=== PATIENT | male | born 1965 | race Caucasian/White ===

== ENCOUNTER 2017-08-29 10:25 | Day surgery (SDC) | payer OTHER ==
[2017-08-29] MEDS ORDERED: LR 1,000 ML IV ONE (10:44)
[2017-08-29] MEDS ORDERED: LIDOCAINE 1% 2 ML INJ ID PRN (10:44)
[2017-08-29 11:02] VITALS: PULSE 78
--- NOTE | 2017-08-29 11:46 | PDANEPAE ---
ANE History of Present Illness 52 yo male with GERD for screening EGD and colonoscopy. ANE Past Medical History - Cardiovascular History Hx Hypertension: Yes Hx Arrhythmias: No Hx Chest Pain: No Hx Coronary Artery / Peripheral Vascular Disease: No Hx CHF / Valvular Disease: No Hx Palpitations: No Cardiovascular History Comment: ATRIAL FIB ABLATION DONE IN 2013 - Pulmonary History Hx COPD: No Hx Asthma/Reactive Airway Disease: Yes Hx Recent Upper Respiratory Infection: No Hx Oxygen in Use at Home: No Hx Sleep Apnea: No Sleep Apnea Screening Result - Last Documented: Positive Pulmonary History Comment: ASTHMA REFLUX IS THE TRIGGER AND OUT IN COLD WEATHER , last ER visit about 10 years ago when pt did not have his rescue inhaler. - Neurologic History Hx Cerebrovascular Accident: No Hx Seizures: No Hx Dementia: No - Endocrine History Hx Diabetes: No Hypothyroid: No - Renal History Hx Renal Disorders: Yes Renal History Comment: BPH - Liver History Hx Hepatic Disorders: No - Neurological & Psychiatric Hx Hx Neurological and Psychiatric Disorders: Yes Neurological / Psychiatric History Comment: ANXIETY - Cancer History Hx Cancer: No - Congenital Disorder History Hx Congenital Disorders: No - GI History GERD: moderate Hx Gastrointestinal Disorders: Yes Gastrointestinal History Comment: REFLUX. DYSPHASIA - Other Health History Other Health History: FLU -01-15. SMALL SKIN TAG ON PENIS - Chronic Pain History Chronic Pain: No - Surgical History Prior Surgeries: ATRIAL ABLATION 2015 SULEMA. ORAL SURGERY. EGD ANE Review of Systems Review of Systems: - Exercise capacity METS (RN): 6 METS - Systems Constitutional: Reports: no symptoms Cardiac: Reports: no symptoms Respiratory: Reports: no symptoms ANE Patient History - Allergies Allergies/Adverse Reactions: hydrocodone bitartrate [From Vicodin] Allergy (Unknown, Verified 04/12/11 19:08) fentanyl Allergy (Verified 08/08/17 12:16) SEVERE GI ISSUES midazolam [From Versed] Allergy (Verified 08/08/17 12:17) SEVERE GI ISSUES - Home Medications Home Medications: Amitriptyline HCl [Elavil 10 mg (*)] 10 mg PO HS 03/17/14 [Last Taken 08/28/17 20:00] Aspirin [Aspirin 325 mg (*)] 325 mg PO HS 03/17/14 [Last Taken 08/23/17] Atorvastatin Calcium [Lipitor 20 mg (RX)] 20 mg PO HS 03/17/14 [Last Taken 08/28 20:00] Montelukast Sodium [Singulair 10 mg (*)] 10 mg PO HS 03/17/14 [Last Taken 20:00] Ranitidine HCl [Zantac] 150 mg PO HS 03/17/14 [Last Taken 08/28/17 20:00] Valsartan [Diovan (*)] 80 mg PO HS 03/17/14 [Last Taken 08/28/17 20:00] Pantoprazole Sodium BID 08/08/17 [Last Taken 08/28/17 20:00] Tamsulosin HCl HS 08/08/17 [Last Taken 08/28/17 20:00] Xopenex Hfa PRN 08/08/17 [Last Taken Unknown] Zetonna HS 08/08/17 [Last Taken 08/28/17 20:00] - NPO status NPO Since - Liquids (Date): 08/29/17 NPO Since - Liquids (Time): 02:45 NPO Since - Solids (Date): 08/28/17 NPO Since - Solids (Time): 09:00 - Anes Hx Anes Hx: post operative nausea and vomiting - Smoking Hx Smoking Status: Never smoked - Family Anes Hx Family Anes Hx: neg - N/A ANE Labs/Vital Signs - Vital Signs Blood Pressure: 134/83 Heart Rate: 78 Respiratory Rate: 16 O2 Sat (%): 100 Height: 182.88 cm Weight: 86.183 kg ANE Physical Exam - Airway Neck exam: FROM Mallampati Score: Class 3 Mouth exam: normal dental/mouth exam - Pulmonary Pulmonary: clear to auscultation - Cardiovascular Cardiovascular: regular rate and rhythym - ASA Status ASA Status: II ANE Anesthesia Plan Anesthesia Plan: GA with mask Total IV Anesthesia: Yes
[2017-08-29] MEDS ORDERED: PROPOFOL/EMULSION 500 MG/50 ML BOTTLE IV ONE (11:55)
[2017-08-29] MEDS ORDERED: LIDOCAINE 2% 5 ML SDV ONE (11:55)
--- NOTE | 2017-08-29 12:02 | PDGENHP ---
History & Physical Chief Complaint: Heartburn, Screening colonoscopy History of Present Illness: Heartburn. Screening colonoscopy Pertinent Past, Social, Family History: No family history of colon cancer. No ETOH No tobacco. RAD. GERD. History of Atrial fibrillation s/p ablation Relevant Physical Exam: NAD. NC/AT. OP clear. CTA B/L. RRR without m/r/g. ABD soft. NABS. NTND. No edema Cardiorespiratory Assessment: ASA II. EGD. Colonoscopy with MAC (history of intolerance to versed and fentanyl)
[2017-08-29] MEDS ORDERED: PROPOFOL 200 MG/20 ML VIAL ONE (12:03)
--- NOTE | 2017-08-29 12:12 | GIREPORT ---
[facility] - Endoscopy Department Patient Name: Mikael Kim Procedure Date: 08/29/2017 11:14 AM Patient Type: Outpatient Attending MD/ ER Physician: Lambert Dao MD Procedure: Upper GI endoscopy Indications: Heartburn Providers: Lambert Dao MD Medicines: Propofol per Anesthesia Complications: No immediate complications. Description of Procedure: After obtaining informed consent, the endoscope was passed under direct vision. Throughout the procedure, the patient's blood pressure, pulse, and oxygen saturations were monitored continuously. The Endoscope was intro duced through the mouth, and advanced to the second part of duodenum. The [facility] er GI endoscopy was accomplished without difficulty. The patient tolerated th e procedure well. Findings: Mucosal changes including ringed esophagus, longitudinal furrows and wh ite plaques were found in the middle third of the esophagus and in the lowe r third of the esophagus. Biopsies were obtained from the proximal and di stal esophagus with cold forceps for histology of suspected eosinophilic esophagitis. The stomach was normal. The examined duodenum was normal. Estimated Blood Loss: Estimated blood loss: none. Post Op Diagnosis: - Esophageal mucosal changes suggestive of eosinophilic esophagitis. Biopsied. - Normal stomach. - Normal examined duodenum. Recommendation: - Await pathology results. - Resume previous diet. - Continue present medications. - Patient has a contact number available for emergencies. The signs and symptoms of potential delayed complications were discussed with the pat ient. Return to normal activities tomorrow. Written discharge instructions we re provided to the patient. - Return to GI office as previously scheduled. Attending Participation: I personally performed the entire procedure without the assistance of a fellow, resident or surg ical podiatry assistant. Lambert Dao MD Lambert Dao MD 08/29/2017 12:11:51 PM This report has been signed electronicallyDavid MD Feliberto Number of Addenda: 0 Note Initiated On: 08/29/2017 11:14 AM [email or web address]
--- NOTE | 2017-08-29 12:32 | GIREPORT ---
[facility] - Endoscopy Department Patient Name: Mikael Kim Procedure Date: 08/29/2017 11:17 AM Patient Type: Outpatient Attending / ER Physician: Lambert Dao MD Procedure: Colonoscopy Indications: Screening for colorectal malignant neoplasm Providers: Lambert Dao MD Medicines: Propofol per Anesthesia Complications: No immediate complications. Description of Procedure: After obtaining informed consent, the scope was passed under direct vis ion. Throughout the procedure, the patient's blood pressure, pulse, and oxyg en saturations were monitored continuously. The Colonoscope with irrigatio n channel was introduced through the anus and advanced to the cecum, identified by appendiceal orifice and ileocecal valve. The colonoscopy was performed without difficulty. The patient tolerated the procedure well. The quality of the bowel preparation was excellent. The ileocecal valve, appendiceal orifice, and rectum were photographed. Findings: The perianal and digital rectal examinations were normal. Pertinent negatives include normal sphincter tone, no palpable rectal lesions and normal prostate (size, shape, and consistency). A 6 mm polyp was found in the transverse colon. The polyp was sessile. The polyp was removed with a cold biopsy forceps. Resection and retrieval w ere complete. A 8 mm polyp was found in the proximal descending colon. The polyp was semi-sessile. The polyp was removed with a cold snare. Resection and retrieval were complete. Estimated Blood Loss: Estimated blood loss: none. Post Op Diagnosis: - One 6 mm polyp in the transverse colon, removed with a cold biopsy forceps. Resected and retrieved. - One 8 mm polyp in the proximal descending colon, removed with a cold snare. Resected and retrieved. Recommendation: - Await pathology results. - Repeat colonoscopy in 5 years for surveillance. - Resume previous diet. - Continue present medications. - Patient has a contact number available for emergencies. The signs and symptoms of potential delayed complications were discussed with the pat ient. Return to normal activities tomorrow. Written discharge instructions we re provided to the patient. - Thank you for allowing me to be involved in the care of your patient. Attending Participation: I personally performed the entire procedure without the assistance of a fellow, resident or surg ical store assistant. Lambert Dao MD Lambert Dao MD 08/29/2017 12:31:58 PM This report has been signed electronicallyDavid MD Feliberto Number of Addenda: 0 Note Initiated On: 08/29/2017 11:17 AM Total Procedure Duration Time 0 hours 19 minutes 16 seconds [email or web address]
--- NOTE | 2017-08-29 12:38 | POSTANESTH ---
Post Anesthetic Evaluation Cardiovascular Status: Normal, Stable Respiratory Status: Normal, Stable Level of Consciousness/Mental Status: Can Participate in Eval, Moderately Sleepy Pain Control: Adequate, Prn Tx Ordered Nausea/Vomiting Control: Adequate, Prn Tx Ordered Complications Possibly Related to Anesthesia: None Noted
[2017-08-29] MEDS ORDERED: LR 500 ML IV PRN (12:40)
[2017-08-29] MEDS ORDERED: LEVALBUTEROL INHALER 200 PUFFS/15 GM MDI IH PRN (12:40)
[2017-08-29] MEDS ORDERED: ONDANSETRON 4 MG/2 ML VIAL IVP PRN (12:40)
[2017-08-29] MEDS ORDERED: ACETAMINOPHEN 500 MG TAB PO PRN (12:40)
[2017-08-29] MEDS ORDERED: NALOXONE HCL 0.4 MG/ML INJ IVP PRN (12:40)
[2017-08-29 14:11] VITALS: BP 129/89; RESP 14; O2SAT 99
[2017-08-29 14:12] VITALS: TEMP 96.8
== END 2017-08-29 14:21 | disposition home or self-care (01) ==
LOC: FSGY 10:25
PROVIDERS: ATTEND Internal Medicine Gastroenterology
PROC: 0DBL8ZX Excision of Transverse Colon, Via Natural or Artificial Opening Endoscopic, Diagnostic (ICD-10-PCS; principal; 2017-08-29 11:45)
PROC: 0DB38ZX Excision of Lower Esophagus, Via Natural or Artificial Opening Endoscopic, Diagnostic (ICD-10-PCS; 2017-08-29 11:45)
PROC: 0DBM8ZX Excision of Descending Colon, Via Natural or Artificial Opening Endoscopic, Diagnostic (ICD-10-PCS; 2017-08-29 11:45)
DX: D12.3 Benign neoplasm of transverse colon (principal); D12.4 Benign neoplasm of descending colon; R12 Heartburn
CPT/HCPCS: J2704

== ENCOUNTER 2018-08-25 21:49 | Emergency (ER) | payer OTHER ==
[2018-08-25 22:00] VITALS: BP 153/94
--- NOTE | 2018-08-25 22:18 | EDPHY ---
H & P Smoking Status: Never smoked Time Seen by Provider: 08/25/18 22:04 HPI/ROS: CHIEF COMPLAINT: Concerns over Possible hanta virus exposure HISTORY OF PRESENT ILLNESS: 53-year-old male, generally healthy, in the ER via private vehicle. 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 While he was working some water sprayed and possibly came in contact with the mouse nest and also impacted his face and his hand. This was not hot water. No burn.. He contacted the on-call physician for his practice who recommend he go to the ER for evaluation for possible Hanta virus exposure. He has no complaints of pain or discomfort. Specifically, he denies: Chest pain, dyspnea, flank pain, area urinary abnormality, acute rash. REVIEW OF SYSTEMS: 10 systems reviewed and negative with the exception of the elements mentioned in the history of present illness PAST MEDICAL & SURGICAL HISTORY: history of asthma. Hyperlipidemia SOCIAL HISTORY: Nonsmoker PHYSICAL EXAM (Prior to examination, patient consented to physical exam, hands were washed and my usual and customary physical exam procedures followed) 1) GENERAL: Well-developed, well-nourished, alert and oriented. Appears to be in no acute distress. 2) HEAD: Normocephalic, atraumatic 3) HEENT: Pupils equal, round, reactive to light bilaterally. Sclera anicteric. Nasopharynx, oropharynx, clear, no lesions. Moist Mucous membranes. 4) NECK: Full range of motion, no meningeal signs. 5) LUNGS: Clear auscultation bilaterally, no wheezes, no rhonchi, no retractions. 6) HEART: Regular rate and rhythm, no murmur, no heave, no gallop. 7) ABDOMEN: No guarding, no rebound, no focal tenderness, negative McBurney's, negative Flores's, negative Rovsing's, negative peritoneal sign, 8) MUSCULOSKELETAL: Moving all extremities, no focal areas of tenderness, no obvious trauma. No peripheral edema or discoloration. 9) BACK: No CVA tenderness, no midline vertebral tenderness, no fluctuance, no step-off, no obvious trauma, no visual or palpable abnormality. 10) SKIN: No rash, no petechiae. 11) Psychiatric: Patient is oriented X 3, there is no agitation. DIFFERENTIAL DIAGNOSIS: In no particular order including but not limited to hanta virus exposure, mold exposure, polymicrobial exposure (Odilon,Surya Benjamin) Constitutional: Initial Vital Signs Temperature (C) 36.8 C 08/25/18 21:56 Heart Rate 91 08/25/18 21:56 Respiratory Rate 18 08/25/18 21:56 Blood Pressure 153/94 H 08/25/18 21:56 O2 Sat (%) 98 08/25/18 21:56 O2 Delivery Mode Room Air Allergies/Adverse Reactions: hydrocodone bitartrate [From Vicodin] Allergy (Unknown, Verified 08/25/18 21:56) fentanyl Allergy (Verified 08/25/18 21:56) SEVERE GI ISSUES midazolam [From Versed] Allergy (Verified 08/25/18 21:56) SEVERE GI ISSUES Home Medications: Medication Instructions Recorded Amitriptyline HCl [Elavil 10 mg 10 mg PO HS 03/17/14 (*)] Aspirin [Aspirin 325 mg (*)] 325 mg PO HS 03/17/14 Atorvastatin Calcium [Lipitor 20 20 mg PO HS 03/17/14 mg (RX)] Montelukast Sodium [Singulair 10 10 mg PO HS 03/17/14 mg (*)] Ranitidine HCl [Zantac] 150 mg PO HS 03/17/14 Valsartan [Diovan (*)] 80 mg PO HS 03/17/14 Pantoprazole Sodium BID 08/08/17 Tamsulosin HCl HS 08/08/17 Xopenex Hfa PRN 08/08/17 Zetonna HS 08/08/17 MDM/Departure - MDM ED Course/Re-evaluation: 10:18 p.m.: This patient is asymptomatic. He is specifically concerned about Hanta virus exposure. As he is asymptomatic I do not think that diagnostic testing indicated. I had a lengthy discussion with the patient and we discussed common incubation period for hanta virus, we discussed common early signs and symptoms for hanta virus. He is not exhibiting any of these signs or symptoms. I informed the patient that while I cannot fully rule out hanta virus exposure, at this point I do not identify emergent condition requiring diagnostic studies or intervention. I provided him my usual customary precautions instructions and feels comfortable being discharged. I believe him to have decision-making capacity. Care of patient under supervision of secondary supervising physician Dr Quiros with whom I discussed case. (Surya Donald) PHYSICIAN DOCUMENTATION: The patient was evaluated and managed by the Physician Assembler Erector. My co- signature indicates that I have reviewed this chart and I agree with the findings and plan of care as documented. I am the secondary supervising physician. (Faye Quiros) - Depart Disposition: Home, Routine, Self-Care Clinical Impression: Possible Hanta virus exposure Condition: Good Instructions: Hemorrhagic Fevers (ED) Additional Instructions: If you develop shortness of breath, chest pain, flu-like symptoms, fevers or any other symptoms, seek medical evaluation. Referrals: Marie Moyer MD [Primary Care Provider] - 2-3 days, call for appt.
== END 2018-08-25 22:41 | disposition home or self-care (01) ==
DX: Z20.828 Contact with and (suspected) exposure to other viral communicable diseases (principal)